=== PATIENT | male | born 1985 | race Two or more races ===

== ENCOUNTER 2017-10-13 20:57 | Emergency (ER) | payer SELFPAY ==
--- NOTE | 2017-10-13 21:22 | EDM.PDOC ---
ED HPI GENERAL MEDICAL PROBLEM - General Chief Complaint: ENT Problem Stated Complaint: SORE THROAT Time Seen by Provider: 10/13/17 21:17 Source of Information: Reports: Patient, Family History Limitations: Reports: No Limitations - History of Present Illness INITIAL COMMENTS - FREE TEXT/NARRATIVE: 31-year-old male presents to the ED with sore throat 48 hours and today noticed spots red painful lesions on his hands and feet. Associated fever with the first 2 days of illness but not so much today. It is painful to swallow. No severe myalgia. No pain in his ears. No cough or sputum production. Onset: Gradual Onset Date: 10/11/17 (Symptoms started about 48 hours ago. Started in his throat first.) Duration: Day(s): Location: Reports: Face (Throat), Other Quality: Reports: Ache, Burning Severity: Moderate Improves with: Reports: None Worsens with: Reports: Eating, Other (swalllowwingg.) Context: Denies: Activity, Exercise, Lifting, Sick Contact, Trauma, Other Associated Symptoms: Reports: Rash (Hands and feet noted red disorders today.). Denies: No Other Symptoms, Confusion, Chest Pain, Cough, cough w sputum, Headaches, Loss of Appetite, Malaise, Nausea/Vomiting, Seizure ( Benadryl 50 mg at home with no relief), Shortness of Breath, Syncope Treatments DISPLAY MANAGER: Reports: NSAIDS (Motrin the first few days of illness due to fever. None today) Throat Pain Score (Numeric/FACES): 8 - Related Data Allergies Allergy/AdvReac Type Severity Reaction Status Date / Time shellfish derived Allergy Swelling Verified 10/13/17 21:09 Home Meds: Home Meds . [No Known Home Meds] 10/13/17 [History] Past Medical History Musculoskeletal History: Reports: Other (See Below) Other Musculoskeletal History: fractured jaw Social & Family History - Tobacco Use Smoking Status *Q: Current Every Day Smoker Years of Tobacco use: 5 Packs/Tins Daily: 1 - Caffeine Use Caffeine Use: Reports: Energy Drinks, Soda - Recreational Drug Use Recreational Drug Use: No ED ROS ENT - Review of Systems Review Of Systems: See Below Constitutional: Reports: Fever, Malaise, Decreased Appetite (Due to difficulty swallowing.). Denies: Chills, Weakness, Fatigue, Weight Loss HEENT: Reports: Throat Pain. Denies: Ear Pain, Hearing Loss, Nosebleed, Nose Pain, Rhinitis, Sinus Problem, Throat Swelling, Vertigo, Vision Change, Other Respiratory: Reports: No Symptoms Cardiovascular: Reports: No Symptoms Endocrine: Reports: No Symptoms GI/Abdominal: Reports: No Symptoms : Reports: No Symptoms Musculoskeletal: Reports: No Symptoms Skin: Reports: Rash Neurological: Reports: No Symptoms (Developed a red rash in various locations on the palmar aspect of his hands and soles of his feet noted today.) Psychiatric: Reports: No Symptoms Hematologic/Lymphatic: Reports: No Symptoms Immunologic: Reports: No Symptoms ED EXAM, ENT - Physical Exam Exam: See Below Exam Limited By: No Limitations General Appearance: Alert, WD/WN, No Apparent Distress, Other (Vital signs are normal.) Eye Exam: Bilateral Eye: Normal Inspection Ears: Normal TMs Mouth/Throat: Pharyngeal Erythema (Mild), Other (He has inflammation of the soft palate with a 3 or 4 spots without any pustules. The posterior oropharynx has 1 lesion. Buccal mucosa is normal no gingiva wall sores noted. Tongue is normal.). No: Teething, Throat Pain, Throat Swelling, Tongue Swelling, Tonsillar Erythema, Tonsillar Exudates, Tonsillar Swelling, Trismus Head: Atraumatic, Normocephalic Neck: Normal Inspection, Supple, Non-Tender, Full Range of Motion Respiratory/Chest: No Respiratory Distress, Lungs Clear, Normal Breath Sounds, No Accessory Muscle Use, Respiratory Distress Cardiovascular: Normal Peripheral Pulses (Mild tachypnea but I think it's due to being anxious.), Regular Rate, Rhythm, No Edema, No Murmur GI/Abdominal: Normal Bowel Sounds, Soft, Non-Tender, No Organomegaly Extremities: Normal Range of Motion, No Pedal Edema, Other (He has tenderness in the red sores that are apparent on the palmar aspect of his hands and soles of his feet. He has only one lesion on his left foot and pain in his plantar surface of his great toe on the right side.) Neurological: Alert, Oriented, CN II-XII Intact, Normal Cognition, Normal Gait Psychiatric: Normal Affect Skin: Warm, Dry, Intact, Normal Color, No Rash Course - Vital Signs Last Recorded V/S: Last Vital Signs Temp 36.4 C 10/13/17 21:05 Pulse 99 10/13/17 21:05 Resp 20 10/13/17 21:05 BP 141/89 H 10/13/17 21:05 Pulse Ox 96 10/13/17 21:05 - Orders/Labs/Meds Orders: Active Orders 24 hr Category Date Time Status CULTURE STREP A CONFIRMATION [] Stat Lab 10/13/17 21:05 Results Rapid Strep w/culture conf [STREP SCRN A RAPID W CULT Lab 10/13/17 21:05 Ordered CONF] [RM] Stat - Radiology Interpretation Free Text/Narrative:: 31-year-old male presents the ED with sore throat for the last 48 hours with difficulty swallowing particularly acidic foods. Associated intermittent fever for 48 hours but not much today. Today's noted some red lesions that are sore to touch on the palms of his hands and the soles of his feet. He has no known exposure to hand foot mouth disease. Examination reveals a few lesions on the soft palate one on his posterior oropharynx red sore spots on the palms of his hand and soles of his feet compatible with sojo-dahs-lux-mouth disease. Advised that he is contagious through his saliva not to share eating utensils or drinking utensils. Departure - Departure Time of Disposition: 21:23 Disposition: Home, Self-Care 01 Condition: Fair Clinical Impression: Hand, foot and mouth disease - Discharge Information Instructions: Hand, Foot, and Mouth Disease, Adult Referrals: PCP,None [Primary Care Provider] - Forms: ED Department Discharge Additional Instructions: Evaluation the emergency room today in regards to sore throat for 48 hours with painful swallowing. Associated fever initially for 2 days but not so much today. Development of sores in the palmar aspects your hands and the soles of your feet today. Examination reveals this to be [id number]-tkre-aiy-mouth disease caused by the coxsackievirus. Illness will last at least 8-10 days. Isiah is conservative in terms of just takes time to get better. Plenty of fluids such as Gatorade or Powerade to maintain hydration. It is tolerated although avoid acidic foods and things like ketchup ,vinegar, mustard etc. Continue Motrin 600 mg every 6 hours needed for relief of pain and inflammation. You are contagious through saliva. Do not share any eating utensils or drinking utensils with anybody until better. - My Orders Last 24 Hours: My Active Orders 10/13/17 21:05 CULTURE STREP A CONFIRMATION [] Stat Rapid Strep w/culture conf [STREP SCRN A RAPID W CULT CONF] [] Stat - Assessment/Plan Last 24 Hours: My Active Orders 10/13/17 21:05 CULTURE STREP A CONFIRMATION [] Stat Rapid Strep w/culture conf [STREP SCRN A RAPID W CULT CONF] [] Stat
== END 2017-10-13 21:35 | disposition home or self-care (01) ==
LOC: JD.ED 20:57
DX: B08.8 Other specified viral infections characterized by skin and mucous membrane lesions (principal); F17.210 Nicotine dependence, cigarettes, uncomplicated; Z91.013 Allergy to seafood
CPT/HCPCS: 87081; 87430; 99283